=== PATIENT | male | born 1955 | race Caucasian/White ===

== ENCOUNTER 2016-08-15 09:19 | Outpatient (CLI) | payer OTHER | END 2016-08-15 09:20 | disposition home or self-care (01) | DX: G47.33 Obstructive sleep apnea (adult) (pediatric) (principal); G47.61 Periodic limb movement disorder ==

== ENCOUNTER 2017-09-03 11:11 | Outpatient (CLI) | payer OTHER | END 2017-09-03 11:12 | disposition home or self-care (01) | LOC: SC 11:11 | PROVIDERS: ATTEND Internal Medicine Pulmonary Disease | DX: G47.33 Obstructive sleep apnea (adult) (pediatric) (principal) | CPT/HCPCS: 99212; 99213 ==

== ENCOUNTER 2019-08-12 12:49 | Outpatient (CLI) | payer OTHER ==
--- NOTE | 2019-08-12 13:31 | SLEEP CARE CONSULTATION ---
Information from patient questionnaire entered by Alisha Morris. I have reviewed and concur with the information entered by Alisha Morris. This document represents the service I personally performed and the decisions made by me, Juliocesar David MD, [facility]. History of Present Illness Previous diagnosis: Severe, Obstructive Sleep Apnea-Hypopnea Syndrome AHI: 41.5 Reason for follow up: annual Equipment obtained from: [facility] Prior sleep studies: Yes HPI additional information: HPI: Mr. Parson returned today for follow up of nasal CPAP therapy. He was diagnosed to have moderate obstructive sleep apnea-hypopnea syndrome. [facility] is his durable medical supplier. The patient wears a Respironics Wisp nasal mask. He reports using the device nightly and all through the night. The compliance report shows usage in 180 nights out of the past 180 nights, averaging 9.6 hours a night. The > 4 hour compliance rate for the past 180 days is 100%. He complained of no particular problem with the device such as soreness on the face, dry nose, epistaxis, nasal congestion or headache. He thinks that the pressure of 8 20 cmH2O is comfortable. On the CPAP therapy he notices improvement in his sleep quality, and that he wakes up feeling fresher in the morning and more awake/alert during the day. [place] Sleepiness Scale score is 5. His notices no snore at all. The average residual AHI is 3.7; and average time in large leak per day is 1 second. The 90th percentile pressure is 10 cmH2O. CPAP Compliance Data - Data Reviewed with Patient Average duration of nightly device use: 9h 36m Compliance rate %: 100 Current pressure setting (cmH2O): 8-20 Humidity settin Heated hose settin Average residual AHI: 3.7 Average large leak: 1s Subjective Current pressure setting perceived as: comfortable Initial [place] Sleepiness Scale score: 6 Current [place] Sleepiness Scale score: 5 Allergies and Home Medications Drug allergies reviewed: Yes (Pradaxa) Home medication list reviewed: Yes (Eliquis, Flonase, simvastatin, Multivitamin once a day ) Review of Systems Review of systems same as previous: Yes Physical Exam Height: 5 ft 11 in Weight: 285 lb Body Mass Index: 39.7 BMI Classification: Obese Impression and Plan IMPRESSION: 1. Obstructive Sleep Apnea-Hypopnea Syndrome, moderate, with the patient doing well on nasal CPAP therapy. He continues to have excellent compliance and significant clinical improvement. The current pressure appears effective and comfortable. His mask fits well. Overall, he is very satisfied with treatment and plans to continue with it long-term. Because the CPAP is now older than the useful life of 5 years, I will order the patient a new one and make it an autoCPAP set between 8 and 20 cmH2O. PLAN: 1. Prescription made for an autoCPAP, heated humidifier, and related supplies. The patient would like to switch to a different durable medical supplier. 2. Try Respironics DreamWisp nasal mask 3. Try to lose weight. 4. Return for follow up after one month on the new machine. I spent 100% of this visit face to face with the patient with greater than 50% of this was spent time counseling the patient and coordination of care.
== END 2019-08-12 12:50 | disposition home or self-care (01) ==
LOC: SC 12:49
PROVIDERS: ATTEND Internal Medicine Pulmonary Disease
DX: G47.33 Obstructive sleep apnea (adult) (pediatric) (principal); E66.9 Obesity, unspecified; Z68.39 Body mass index [BMI] 39.0-39.9, adult
CPT/HCPCS: 99212; 99213

== ENCOUNTER 2021-01-24 13:01 | Outpatient (CLI) | payer OTHER ==
--- NOTE | 2021-01-24 16:44 | SLEEP CARE CONSULTATION ---
Information from patient questionnaire entered by Mayra Russo. I have reviewed and concur with the information entered by Mayra Russo. This document represents the service I personally performed and the decisions made by me, Juliocesar David MD, [facility]. History of Present Illness Service Date and Time: 01/24/2021 1301 Previous diagnosis: Severe, Obstructive Sleep Apnea-Hypopnea Syndrome AHI: 41.5 (in 2011) Reason for follow up: annual (last seen 11/2019) Equipment type: CPAP Equipment obtained from: [facility] Mask style: Nasal Prior sleep studies: Yes Year and Where: 2011 - [facility] Sleep HPI additional information: HPI: Mr. Parson returns today to follow up CPAP therapy, He was diagnosed to have severe obstructive sleep apnea-hypopnea syndrome. He gets his supplies through [facility] in [place]. The patient wears a nasal mask. He reports using the device nightly and all through the night. The compliance report shows usage in 180 nights out of the past 180 nights, averaging 9.2 hours a night. The > 4 hour compliance rate for the past 180 days is 100%. He complained of no particular problem with the device such as soreness on the face, dry nose, epistaxis, nasal congestion or headache. He thinks that the pressure of 8 20 cmH2O is comfortable. On the CPAP therapy he notices improvement in his sleep quality, and that he wakes up feeling fresher in the morning and more awake/alert during the day. [place] Sleepiness Scale score is 2. His notices no snore at all. The average residual AHI is 5.2 (was 8.2 on his old machine); and average time in large leak per day is 16 seconds. The 90th percentile pressure is 10.5 cmH2O. The patient is no aware of the [employer] Respironics recall on all [employer] devices. CPAP Compliance Data - Data Reviewed with Patient Average duration of nightly device use: 9 hr 9 min Compliance rate %: 100 (180 days) Current pressure setting (cmH2O): 8-20 Humidity settin Heated hose settin Average residual AHI: 5.2 Average large leak: 16 sec Subjective Initial [place] Sleepiness Scale score: 5 (in 2011) Current [place] Sleepiness Scale score: 2 Allergies and Home Medications Drug allergies reviewed: Yes Home medication list reviewed: Yes Review of Systems Review of systems same as previous: Yes Physical Exam Height: 5 ft 11 in Weight: 225 lb Body Mass Index: 31.4 BMI Classification: Obese Impression and Plan IMPRESSION: 1. Obstructive Sleep Apnea-Hypopnea Syndrome, severe (AHI was 41.5 in 2012), with the patient doing well on nasal CPAP therapy. He has excellent compliance and significant clinical improvement. The current pressure appears slightly effective and comfortable. His mask fits well. Overall, he is very satisfied with treatment and plans to continue with it long-term. No adjustment is necessary today. In regards to the recall on all [employer] DreamStation devices, we discussed the risks and benefits of stopping versus continuing to use the device. In severe cases, it appears the benefits outweigh the risks and it is reasonable to continue until the replace part or machine becomes available. Symptoms that could be related to the recalled sound abatement foam piece are headache, nausea, chest tightness, and upper airway irritation. The patients should also look for debris in the air outlet, water reservoir, and hose. If found, the device should not be used. In [id number] cases, the patients should refrain from using the device. The patient should register the device on [email or web address]. Because his sleep apnea is severe, he will keep on using his machine. PLAN: 1. Continue with autoCPAP set at 8 - 20 cmH2O. 2. Try to lose weight 3. Stop using the SoClean device on his CPAP. 4. Monitor for debris and symptoms. 4. Return full face mask after he gets a new replacement machine. Follow up recommended for: Weight management Visit Type: In Office Time Spent with Patient (minutes): 15 Provider Statement: I spent 100% of the Face to Face Visit with the patient with greater than 50% spent counseling the patient and coordination of care.
== END 2021-01-24 13:02 | disposition home or self-care (01) ==
LOC: SC 13:01
PROVIDERS: ATTEND Internal Medicine Pulmonary Disease
DX: G47.33 Obstructive sleep apnea (adult) (pediatric) (principal); E66.9 Obesity, unspecified; Z68.31 Body mass index [BMI] 31.0-31.9, adult
CPT/HCPCS: 99212

== ENCOUNTER 2023-01-08 15:29 | Outpatient (CLI) | payer MEDICARE, OTHER ==
--- NOTE | 2023-01-08 16:04 | SLEEP CARE CONSULTATION ---
Information from patient questionnaire entered by Sanchez Howe. I have reviewed and concur with the information entered by Sanchez Howe. This document represents the service I personally performed and the decisions made by me, Juliocesar David MD, [facility]. History of Present Illness Service Date and Time: 01/08/2023 1529 Previous diagnosis: Severe, Obstructive Sleep Apnea-Hypopnea Syndrome AHI: 41.5 (in 2011) Reason for follow up: annual (LAST SEEN 12/2021) Equipment type: CPAP (GARCIA SD CARD NEEDED) Equipment obtained from: [facility] Mask style: Nasal Prior sleep studies: Yes Year and Where: 2011 - [facility] Sleep HPI additional information: Mr. Parson returns today to follow up CPAP therapy, He was diagnosed to have severe obstructive sleep apnea-hypopnea syndrome. He gets his supplies through [facility] in [place]. He just got a refurbished DreamStation autoCPAP from [employer] a year ago. The patient wears a nasal mask. He reports using the device nightly and all through the night. The compliance report shows usage in 180 nights out of the past 180 nights, averaging 9.3 hours a night. The > 4 hour compliance rate for the past 180 days is 100%. He complained of no particular problem with the device such as soreness on the face , dry nose, epistaxis, nasal congestion or headache. He thinks that the pressure of 4 20 cmH2O (his old machine was set 8 20 cmH2O) is comfortable. On the CPAP therapy he notices improvement in his sleep quality, and that he wakes up feeling fresher in the morning and more awake/alert during the day. [place] Sleepiness Scale score is 3. His notices no snore at all. The average residual AHI is 4.2 (was 4,5 on his old machine); and average time in large leak per day is 8 seconds. The 90th percentile pressure is 9.5 cmH2O. Sleep Study - Results Prior sleep studies: Yes Year and Where: 2011 - [facility] Sleep Subjective Initial [place] Sleepiness Scale score: 5 (in 2011) Current [place] Sleepiness Scale score: 3 (01/08/23) Allergies and Home Medications Drug allergies reviewed: Yes Home medication list reviewed: Yes Allergy and home medication list: Allergies No Known Drug Allergies Allergy (Verified 01/05/23 09:47) Review of Systems Review of systems same as previous: Yes Physical Exam Vital signs obtained and entered by: SANCHEZ Merlos MA Blood Pressure: 124/76 (LEFT ARM) Cuff size: regular Heart Rate: 85 O2 Saturation: 98 Height: 5 ft 11 in Weight: 213 lb Body Mass Index: 29.7 BMI Classification: Overweight Impression and Plan IMPRESSION: 1. Obstructive Sleep Apnea-Hypopnea Syndrome, severe (AHI was 41.5 in 2011), with the patient doing well on nasal CPAP therapy. He has excellent compliance and significant clinical improvement. The current pressure appears slightly effective and comfortable. His mask fits well. Overall, he is very satisfied with the treatment and plans to continue with it long-term. For the elevated residual AHI, I will raise the pressure a little. PLAN: 1. AutoCPAP raised to 6 - 20 cmH2O. 2. Return for follow up in 3 months to recheck the residual AHI. I spent 100% of the 12 minute call with the patient with greater than 50% of this spent counseling the patient and coordination of care. Visit Type: In Office Provider Statement: I spent 100% of the Face to Face Visit with the patient with greater than 50% spent counseling the patient and coordination of care.
[2023-01-08 16:10] VITALS: BP 124/76
== END 2023-01-08 15:30 | disposition home or self-care (01) ==
LOC: SC 15:29
PROVIDERS: ATTEND Internal Medicine Pulmonary Disease
DX: G47.33 Obstructive sleep apnea (adult) (pediatric) (principal); E66.3 Overweight; Z68.29 Body mass index [BMI] 29.0-29.9, adult
CPT/HCPCS: 99212; G0463

== ENCOUNTER 2023-03-19 15:25 | Outpatient (CLI) | payer MEDICARE, OTHER ==
--- NOTE | 2023-03-19 16:03 | SLEEP CARE CONSULTATION ---
Information from patient questionnaire entered by Sanchez Howe. I have reviewed and concur with the information entered by Sanchez Howe. This document represents the service I personally performed and the decisions made by me, Juliocesar David MD, [facility]. History of Present Illness Service Date and Time: 03/19/2023 1525 Previous diagnosis: Severe, Obstructive Sleep Apnea-Hypopnea Syndrome AHI: 41.5 (in 2011) Reason for follow up: three month (F/U) Equipment type: CPAP (GARCIA SD CARD NEEDED) Equipment obtained from: [facility] Mask style: Nasal Prior sleep studies: Yes Year and Where: 2011 - [facility] Sleep HPI additional information: Mr. Parson returns today to follow up CPAP therapy, He was diagnosed to have severe obstructive sleep apnea-hypopnea syndrome. He gets his supplies through [facility]. He uses a refurbished DreamStation autoCPAP from [employer] a year go. The patient wears a nasal mask. He reports using the device nightly and all through the night. The compliance report shows usage in 90 nights out of the past 90 nights, averaging 9.3 hours a night. The > 4 hour compliance rate for the past 180 days is 100%. He complained of no particular problem with the device such as soreness on the face, dry nose, epi staxis, nasal congestion or headache. He thinks that the pressure of 6 20 cmH2 O (his old machine was set 4 20 cmH2O) is comfortable. On the CPAP therapy he notices improvement in his sleep quality, and that he wakes up feeling fresher in the morning and more awake/alert during the day. [place] Sleepiness Scale score is 3. His notices no snore at all. The average residual AHI is 14.3 (was 4,5 on the lower setting); and average time in large leak per day is 8 seconds. The 90th percentile pressure is 9.2 cmH2O. Sleep Study - Results Prior sleep studies: Yes Year and Where: 2011 - [facility] Sleep Subjective Initial [place] Sleepiness Scale score: 5 (in 2011) Current [place] Sleepiness Scale score: 3 (03/19/23) Allergies and Home Medications Drug allergies reviewed: Yes Home medication list reviewed: Yes Allergy and home medication list: Allergies No Known Drug Allergies Allergy (Verified 03/16/23 13:08) Review of Systems Review of systems same as previous: Yes Physical Exam Vital signs obtained and entered by: SANCHEZ Merlos MA Blood Pressure: 140/84 (LEFT ARM) Cuff size: regular Heart Rate: 102 O2 Saturation: 98 Height: 5 ft 11 in Weight: 213 lb 12.8 oz Body Mass Index: 29.8 BMI Classification: Overweight Impression and Plan IMPRESSION: 1. Obstructive and Central Sleep Apnea-Hypopnea Syndrome, severe (AHI was 41.5 in 2011), with the patient doing well on nasal CPAP therapy. He has excellent compliance and significant clinical improvement. Raising the pressure made the residual respiratory events go up. Most of the residual respiratory events are central apneas. Therefore, I will lower the pressure. The patient has lost a lot of weight from taking Ozempic. He may need a new sleep study soon. PLAN: 1. Lower autoCPAP to 4 - 12 cmH2O via the modem. 2. Return for follow up in 6 months to recheck the residual AHI and perhaps have another diagnostic sleep study then. Adjust device pressure to (cmH2O): 4 - 12 Follow up with Sleep Care in: 6 months Visit Type: In Office Time Spent with Patient (minutes): 15 Provider Statement: I spent 100% of the Face to Face Visit with the patient with greater than 50% spent counseling the patient and coordination of care.
[2023-03-19 16:06] VITALS: BP 140/84; O2SAT 98
== END 2023-03-19 15:26 | disposition home or self-care (01) ==
LOC: SC 15:25
PROVIDERS: ATTEND Internal Medicine Pulmonary Disease
DX: G47.33 Obstructive sleep apnea (adult) (pediatric) (principal); G47.31 Primary central sleep apnea; E66.3 Overweight; Z68.29 Body mass index [BMI] 29.0-29.9, adult
CPT/HCPCS: 99212; G0463

== ENCOUNTER 2023-11-05 09:04 | Outpatient (CLI) | payer MEDICARE, OTHER ==
--- NOTE | 2023-11-05 09:58 | SLEEP CARE CONSULTATION ---
Information from patient questionnaire entered by Sanchez Howe. I have reviewed and concur with the information entered by Sanchez Howe. This document represents the service I personally performed and the decisions made by me, Juliocesar David MD, [facility]. History of Present Illness Service Date and Time: 11/05/2023903 Previous diagnosis: Severe, Obstructive Sleep Apnea-Hypopnea Syndrome AHI: 41.5 (in 2011) Reason for follow up: six month (F/U NEED MACHINE) Equipment type: CPAP (GARCIA SD CARD NEEDED) Equipment obtained from: [facility] Mask style: Nasal Prior sleep studies: Yes Year and Where: 2011 - [facility] Sleep HPI additional information: Mr. Parson returns today to follow up CPAP therapy, He was diagnosed to have severe obstructive sleep apnea-hypopnea syndrome. He gets his supplies through [facility]. He uses a refurbished DreamStation autoCPAP from [employer]. The patient wears a nasal mask. He reports using the device nightly and all through the night. The compliance report shows usage in 180 nights out of the past 180 nights, averaging 9.2 hours a night. The > 4 hour compliance rate for the past 180 days is 100%. He complained of no particular problem with the device such as soreness on the face, dry nose, epistaxis, nasal congestion or headache. He thinks that the pressure of 6 20 cmH2O is comfortable. On the CPAP therapy he notices improvement in his sleep quality, and that he wakes up feeling fresher in the morning and more awake/alert during the day. [place] Sleepiness Scale score is 6. His notices no snore at all. The average residual AHI is 12.8 (was 14.3 on the lower setting); and average time in large leak per day is 9 seconds. The 90th percentile pressure is 9.0 cmH2O. Sleep Study - Results Prior sleep studies: Yes Year and Where: 2011 - [facility] Sleep Subjective Initial [place] Sleepiness Scale score: 5 (in 2011) Current [place] Sleepiness Scale score: 6 (11/05/23) Allergies and Home Medications Drug allergies reviewed: Yes Home medication list reviewed: Yes Allergy and home medication list: Allergies No Known Drug Allergies Allergy (Verified 11/01/23 09:06) Review of Systems Review of systems same as previous: Yes (NO CHANGE) Physical Exam Vital signs obtained and entered by: SANCHEZ Merlos MA Blood Pressure: 122/87 (RIGHT ARM) Cuff size: long Heart Rate: 84 O2 Saturation: 98 Height: 5 ft 11 in Weight: 210 lb 6.4 oz Body Mass Index: 29.3 BMI Classification: Overweight Impression and Plan IMPRESSION: 1. Obstructive and Central Sleep Apnea-Hypopnea Syndrome, severe (AHI was 41.5 in 2011), with the patient doing well on nasal CPAP therapy. He has excellent compliance and significant clinical improvement. His residual AHI remains high with central apneas being the primary type. His last in-laboratory polysomnography was 12 years ago. PLAN: 1. Leave autoCPAP at 6 - 12 cmH2O. 2. Return for a follow up in a year or earlier if there is any problem. He will be eligible for a new machine then. 3. Repeat in-laboratory polysomnography at that time. Follow up with Sleep Care in: 1 year Visit Type: In Office Time Spent with Patient (minutes): 15 Provider Statement: I spent 100% of the Face to Face Visit with the patient with greater than 50% spent counseling the patient and coordination of care.
[2023-11-05 10:02] VITALS: BP 122/87; O2SAT 98
== END 2023-11-05 09:05 | disposition home or self-care (01) ==
LOC: SC 09:04
PROVIDERS: ATTEND Internal Medicine Pulmonary Disease
DX: G47.33 Obstructive sleep apnea (adult) (pediatric) (principal); G47.31 Primary central sleep apnea; E66.3 Overweight; Z68.29 Body mass index [BMI] 29.0-29.9, adult
CPT/HCPCS: 99212; G0463